=== PATIENT | female | born 1945 | race Caucasian/White ===

== ENCOUNTER 2018-03-16 10:22 | Emergency (ER) | payer BC, OTHER ==
[~2018-03-16] VITALS: Ht 160 cm; Wt 82.1 kg
[~2018-03-16 10:22] MED LIST: PRILOSEC40 MG; SYNTHROID75 MCG; VESICARE10 MG
[2018-03-16] MEDS ORDERED: SODIUM CHLORIDE 0.9% 1000ML 1,000 ML IV STA (10:40)
[2018-03-16] MEDS ORDERED: ASPIRIN 81 MG CHEW TAB PO ONE (10:45)
[2018-03-16] MEDS ORDERED: ONDANSETRON HCL INJ 2 MG/ML VIAL IV STA (10:48)
[2018-03-16 11:18] LABS: BASOPHILS % 0.2 % (0.0-1.0); EOSINOPHILS % 0.5 % (0.0-6.0); HEMATOCRIT 37.7 % (34.2-44.1); HEMOGLOBIN 12.2 g/dL (12.0-16.0); LYMPHOCYTES # (AUTO) 1.1 (1.0-3.2); LYMPHOCYTES % 13.4 % (18.0-39.1); MEAN CORPUSCULAR HEMOGLOBIN 28.3 pg (28-32); MEAN CORPUSCULAR HGB CONC 32.4 g/dL (31-35); MEAN CORPUSCULAR VOLUME 87.5 fL (81-99); MONOCYTES # (AUTO) 0.6 (0.2-0.8); MONOCYTES % 7.5 % (4.4-11.3); NEUTROPHILS # (AUTO) 6.4 (2.1-6.9); PLATELET COUNT 290 x10e3/uL (140-360); RED BLOOD COUNT 4.31 x10e6/uL (3.6-5.1); RED CELL DISTRIBUTION WIDTH 14.5 % (11.7-14.4)
[2018-03-16 11:24] LABS: STREPTOCOCCUS GRP A ANTIGEN NEGATIVE (NEGATIVE)
[2018-03-16 11:32] LABS: ALANINE AMINOTRANSFERASE 15 IU/L (0-55); ALBUMIN/GLOBULIN RATIO 0.9 (0.8-2.0); ALKALINE PHOSPHATASE 106 IU/L (40-150); ANION GAP 18.7 mmol/L (8-16); BLOOD UREA NITROGEN 13 mg/dL (7-26); BUN/CREATININE RATIO 15 (6-25); CALCIUM 9.1 mg/dL (8.4-10.2); CARBON DIOXIDE 18 mmol/L (22-29); CHLORIDE 105 mmol/L (98-107); CREATINE KINASE 73 IU/L (29-168); CREATININE, SERUM 0.89 mg/dL (0.57-1.11); EST GLOMERULAR FILTRATION RATE > 60 ML/MIN (60-); GLUCOSE 122 mg/dL (74-118); POTASSIUM 4.7 mmol/L (3.5-5.1); SODIUM 137 mmol/L (136-145)
[2018-03-16 11:34] LABS: INFLUENZAE A&B ANTIGEN (RAPID) NEGATIVE (NEGATIVE)
--- NOTE | 2018-03-16 11:40 | Diagnostic Imaging Report ---
EXAM: XR CHEST 2 VIEWS DATE: 03/16/2018 10:40 AM INDICATION: Cough/congestion COMPARISON: None FINDINGS: Lines and Tubes: None Heart and Mediastinum: The heart is not enlarged. Retrocardiac rounded opacity present. Lungs and Pleura: Minimal biapical scarring. Minimal opacities in the lung bases statistically represent atelectasis, however, infectious process could have a similar appearance. Bones and Soft Tissues: No acute findings. IMPRESSION: 1. Probable basilar atelectasis. 2. Small rounded density retrocardiac region statistically hiatal hernia, but inadequately evaluated radiographically. Signed by: Dr. Sammy Wiggins MD on 03/16/2018 11:36 AM
[2018-03-16] MEDS ORDERED: DEXAMETHASONE SOD PHOS 10 MG/1 ML VIAL ONE (12:20)
[2018-03-16] MEDS ORDERED: DEXAMETHASONE SOD PHOS 10 MG/1 ML VIAL INJ ONE (13:00)
--- OUTSIDE RECORDS SUMMARY | 2018-03-18 13:57 | XMS REPORT | Encounter Summary ---
Author Organization Unknown Address [address] [place] [address] Phone [phone] Reason for Visit Medical Complaint Instructions 1. Acute upper respiratory infection upper respiratory infection (cold): care instructions fluticasone 50 mcg/actuation nasal spray,suspension 2. Acute pharyngitis sore throat: care instructions rapid strep group A, throat Discussion Note Pt is in NAD; Verbalizes understanding of all instructions with no questions at this time. Plan of Care Patient Instructions Take fluticasone over the counter as needed for congestion. [place] one spray in each nostril twice a day. Take a warm, steamy shower, blow your nose thereafter, and spray in each nostril. Tilt your head up for about 10 seconds and breath through your mouth. Do not sniff or snort the medication in or else the medication will go to your throat and not be absorbed appropriately. Take over the counter antihistamine like claritin or Xyzal for allergy like symptoms like runny nose, sneezing and watery eyes. Take chloraseptic spray for sore throat as per package insert. Continue Cheratussin AC for cough as directed. Take medications as prescribed and follow up with a PCP within 2-3 if symptoms worsen as discussed. Reminders Provider Appointments None recorded. Lab Rapid Strep Group a, Throat 10/10/2016 [facility] Referral None recorded. Procedures None recorded. Surgeries None recorded. Imaging None recorded. Medications Name Start Date Cheratussin AC citalopram 40 mg tablet TAKE ONE (1) TABLET(S) BY MOUTH ONCE A DAY. fluticasone 50 mcg/actuation nasal spray,suspension [place] 1 spray every day by intranasal route as needed for 10 days. levothyroxine 88 mcg tablet TAKE ONE (1) TABLET(S) BY MOUTH ONCE A DAY ON AN EMPTY STOMACH. Medications Administered None recorded. Vitals Height Weight BMI Blood Pressure 5 ft 4 in 190 lbs 32.6 114/80 Lab Results Date Name Specimen Result Interpretation Description Value Range Status Address Rapid Strep Group a, Throat Result negative [facility]: [address] [place], [place] Swab Location Left and Right tonsillar pillars [facility]: [address] [place] [address] Allergies Code Code System Name Reaction Severity Onset Penicillins Anaphylaxis Mild to Moderate Problems Name Status Onset Date Source Conjunctivitis Active Encounter Acute Sinusitis Active Encounter Allergic Rhinitis Active Encounter Procedures Date Name Performed by Information not available Tonsillectomy Information not available Vaccine List None recorded. Social History Smoking Status Never Smoker Past Encounters 10/10/2016 Acute Upper Respiratory Infection; Acute Pharyngitis Amara Prado, RESOURCE RECOVERY ENGINEER-C: [address] [place] [address], Ph. History of Present Illness [id number] Reported By: Patient HPI: Duration: days. Context: no ill contacts, no tick/insect bites, no recent travel, no new medications; Pt reports she has cheratussin AC at home but has not been taking it. Associated Symptoms: no headache, no muscle aches, no rash, no lethargy, fever/chills, cough; sore throat. Modifying Factors OTC medication Review of Systems:ROS as noted in the HPI Review of Systems Basic Reported By: Patient Physical Exam Adult Basic, Adult Female Complete Reported By: Patient Constitutional: General Appearance: healthy-appearing, well-nourished, well-developed. Level of Distress: NAD. Ambulation: ambulating normally Psychiatric: Mental Status: active and alert. Orientation: to time, to place, to person Eyes: Lids and Conjunctivae: non-injected Ehc-Kwzn-Tsffj-Throat: Ears: no lesions on external ear, no outer ear tenderness, EACs clear, TMs clear. Nose: no lesions on external nose, nares patent, no septal deviation, nasal passages clear, no sinus tenderness, nasal d ischarge--rhinorrhea, post nasal drip. Lips, Teeth, and Gums: no mouth or lip ulcers, no bleeding gums, normal dentition. Oropharynx: moist mucous membranes, no erythema, no exudates, tonsils absent Neck: Neck: supple. Lymph Nodes: anterior cervical LAD Lungs: Respiratory effort: no dyspnea, no tachypnea, no use of accessory muscles, no intercostal retractions. Auscultation: breath sounds normal Cardiovascular: Heart Auscultation: RRR, no murmurs Neurologic: Gait and Station: normal gait, normal station
--- OUTSIDE RECORDS SUMMARY | 2018-03-18 13:57 | XMS REPORT | Continuity of Care Document ---
Author Author [facility] Address Unknown Phone Unavailable Problems Problem Status Onset Date Classification Date Reported Comments Source Feeling faint 03/16/2018 Diagnosis 03/16/2018 [facility] Dyspnea at rest 03/16/2018 Diagnosis 03/16/2018 [facility] Hypoxia 03/16/2018 Diagnosis 03/16/2018 [facility] Influenza-like symptoms 03/16/2018 Diagnosis 03/16/2018 [facility] Body mass index 30+ - obesity 03/16/2018 Diagnosis 03/16/2018 [facility] Bacterial conjunctivitis 01/11/2018 Diagnosis 01/11/2018 [facility] Hypothyroidism 01/11/2018 Problem 03/16/2018 [facility] Body Mass Index 30+ - Obesity 01/11/2018 Problem 03/16/2018 [facility] Bacterial Conjunctivitis 01/11/2018 Problem 01/11/2018 [facility] Acute upper respiratory infection 10/10/2016 Diagnosis 10/10/2016 [facility] Acute pharyngitis 10/10/2016 Diagnosis 10/10/2016 [facility] Conjunctivitis Problem 10/10/2016 [facility] Acute Sinusitis Problem 10/10/2016 [facility] Allergic Rhinitis Problem 10/10/2016 [facility] Medications Medication Details Route Status Patient Instructions Ordering Provider Order Date Source Citalopram 40 MG Oral Tablet citalopram 40 mg tablet TAKE ONE (1) TABLET(S) BY MOUTH ONCE A DAY. Active [facility] Levothyroxine Sodium 0.088 MG Oral Tablet levothyroxine 88 mcg tablet TAKE ONE (1) TABLET(S) BY MOUTH ONCE A DAY ON AN EMPTY STOMACH. Active [facility] Polymyxin B 76931 UNT/ML / Trimethoprim 1 MG/ML Ophthalmic Solution polymyxin B sulfate 10,000 unit-trimethoprim 1 mg/mL eye drops Instill 1 drop every 4 hours by ophthalmic route as directed to left eye for 7 days. Active [facility] Cheratussin AC Cheratussin AC Active [facility] Fluticasone propionate 0.05 MG/ACTUAT Metered Dose Nasal [place] fluticasone 50 mcg/actuation nasal spray,suspension [place] 1 spray every day by intranasal route as needed for 10 days. Active [facility] Nexium Nexium Active [facility] Allergies, Adverse Reactions, Alerts Substance Category Reaction Severity Reaction type Status Date Reported Comments Source Penicillins Anaphylaxis Mild to Moderate Allergy to substance 09/14/2014 [facility] Immunizations Immunization Date Given Site Status Last Updated Comments Source Results Order Name Results Value Reference Range Date Interpretation Comments Source Influenza A negative 03/16/2018 [facility] Influenza B negative 03/16/2018 [facility] Adenovirus Ag [Presence] in Unspecified specimen by Immunoassay RESULT negative 01/11/2018 [facility] Adenovirus Ag [Presence] in Unspecified specimen by Immunoassay SWAB LOCATION Left Conjunctiva 01/11/2018 [facility] RESULT negative 10/10/2016 [facility] SWAB LOCATION Left and Right tonsillar pillars 10/10/2016 [facility] Vital Signs Vital Sign Value Date Comments Source Diastolic (mm Hg) 80 03/16/2018 [facility] Height 64 03/16/2018 [facility] Systolic (mm Hg) 106 03/16/2018 [facility] Weight 185 03/16/2018 [facility] Diastolic (mm Hg) 76 01/11/2018 [facility] Height 64 01/11/2018 [facility] Systolic (mm Hg) 112 01/11/2018 [facility] Weight 185 01/11/2018 [facility] Diastolic (mm Hg) 80 10/10/2016 [facility] Height 64 10/10/2016 [facility] Systolic (mm Hg) 114 10/10/2016 [facility] Weight 190 10/10/2016 [facility] Encounters Location Location Details Encounter Type Encounter Number Reason For Visit Attending Provider ADM Date DC Date Status Source [place] - [facility] - [id number] Alfaro-C: [address] [facility] [place] [address], Ph. [id number] Amara Prado 10/10/2016 [facility] [place] - [facility] - [id number] Alfaro-C: [address] [place] [address], Ph. [id number] Amara Prado 01/11/2018 [facility] [place] - [facility] - [id number] ReyesC: [address] [facility], [place]vaez [address], Ph. [id number] Debbie Augustin 03/16/2018 [facility] Procedures Procedure Code Date Perfomer Comments Source [facility] Tonsillectomy [facility]
--- OUTSIDE RECORDS SUMMARY | 2018-03-18 13:57 | XMS REPORT | Encounter Summary ---
Author Organization Unknown Address [address] [place] [address] Phone [phone] Reason for Visit Left Medical Complaint Instructions 1. Bacterial conjunctivitis pinkeye: care instructions polymyxin B sulfate 10,000 unit-trimethoprim 1 mg/mL eye drops adenovirus Ag, Immunoassay 2. Body mass index 30+ - obesity body mass index: care instructions Discussion Note Pt is in NAD; Verbalizes understanding of all instructions with no questions at this time. Plan of Care Patient Instructions Proper hand hygiene after contact with eyes, do not share pillows/clothing. Do not not wear any contacts for the next 7 days. Use a different tissue to clean each eye. You will become non-contagious after 28 hrs of proper antibiotic use. Take medications as prescribed. Follow up with your PCP or airport engineer within 2-3 days if symptoms worsen as discussed. Report to ER in case of emergency, sharp e ye pain or vision loss. Recommend follow a low sodium/fat/carb diet and exercise 30-45 mins/d 3-4 days a week once symptoms resolve. Reminders Provider Appointments None recorded. Lab Adenovirus Ag, Immunoassay 01/11/2018 [facility] Referral None recorded. Procedures None recorded. Surgeries None recorded. Imaging None recorded. Medications Name Start Date citalopram 40 mg tablet TAKE ONE (1) TABLET(S) BY MOUTH ONCE A DAY. levothyroxine 88 mcg tablet TAKE ONE (1) TABLET(S) BY MOUTH ONCE A DAY ON AN EMPTY STOMACH. polymyxin B sulfate 10,000 unit-trimethoprim 1 mg/mL eye drops Instill 1 drop every 4 hours by ophthalmic route as directed to left eye for 7 days. Medications Administered None recorded. Vitals Height Weight BMI Blood Pressure 5 ft 4 in 185 lbs 31.8 kg/m2 112/76 mm[Hg] Lab Results Date Name Specimen Result Interpretation Description Value Range Status Address 01/11/2018 Adenovirus Ag, Immunoassay Result negative [facility]: [address] [place] [address] Swab Location Left Conjunctiva [facility]: [address] [place] [address] Allergies Code Code System Name Reaction Severity Status Onset Penicillins Anaphylaxis Mild to Moderate Active Problems Name Status Onset Date Source Hypothyroidism Active 01/11/2018 Body Mass Index 30+ - Obesity Active 01/11/2018 Bacterial Conjunctivitis Active 01/11/2018 Procedures Date Name Performed by Information not available Tonsillectomy Information not available Vaccine List None recorded. Social History Smoking Status Never Smoker Past Encounters 01/11/2018 Bacterial Conjunctivitis; Body Mass Index 30+ - Obesity Amara Prado, [facility]-C: [address] [place] [address], Ph. History of Present Illness Eye Complaint Reported By: Patient HPI: Location: left. Quality: dull. Severity: pain level 2/10. Duration actual date 01-10-18, constant. Onset/Timing: first episode, gradual onset, 1days. Context no previous history of Iritis, no previous history of recurrent corneal erosion, no one else with similar symptoms, wears contact lenses. Modifying factors nothing gives relief. Associated Symptoms: vision intact, no foreign body sensation in eyes, no pain in the eyes, no pain with eye movement, no headache, no fever/chills, no muscle aches, photophobia, matting/drainage; eye irritation and mucopurulent drainage Review of Systems Basic Reported By: Patient Constitutional: Constitutional: no fever Eyes: Eyes: dry eyes, irritation; mucopurulent drainage and photophobia [id number]-Hcdg-Cozzn-Throat: Ears: no ear complaints. Nose: no nose/sinus problems. Mouth/Throat: no sore throat, no bleeding gums, no mouth complaints, no teeth problems Cardiovascular: Cardiovascular: no chest pain, no shortness of breath, no known heart murmur Respiratory: Respiratory: no cough, no wheezing, no shortness of breath Gastrointestinal: Gastrointestinal: no abdominal pain, no vomiting / diarrhea Genitourinary: Genitourinary: no urinary complaints, no discharge Musculoskeletal: Musculoskeletal: no muscle aches, no muscle weakness, no arthralgias/joint pain, no back pain Skin: Skin: no abnormal / changing mole, no jaundice, no rashes Neurologic: Neurologic: no loss of consciousness, no weakness, no numbness, no seizures, no dizziness, no headaches Physical Exam Adult Basic, Adult Female Complete Reported By: Patient Constitutional: General Appearance: obese. Level of Distress: NAD. Ambulation: ambulating normally Psychiatric: Mental Status: active and alert. Orientation: to time, to place, to person Eyes: Lids and Conjunctivae: injected, discharge. Pupils: PERRLA. Corneas: grossly intact. EOM: EOMI. Lens: clear. Sclerae: non-icteric. Vision: distance acuity: left, with correction: 20/20, distance acuity: right, with correction: 20/20 Nzb-Mpkr-Sessa-Throat: Ears: no lesions on external ear, no outer ear tenderness, EACs clear, TMs clear. Nose: no lesions on external nose, nares patent, no septal deviation, nasal passages clear, no sinus tenderness, no nasal discharge. Lips, Teeth, and Gums: no mouth or lip ulcers, no bleeding gums, normal dentition. Oropharynx: moist mucous membranes, no erythema, no exudates, tonsils absent Neck: Lymph Nodes: no cervical LAD Lungs: Respiratory effort: no dyspnea, no tachypnea, no use of accessory muscles, no intercostal retractions Cardiovascular: Heart Auscultation: RRR, no murmurs Skin: Inspection and palpation: no rash
== END 2018-03-16 12:34 | disposition home or self-care (01) ==
LOC: ER 10:22
DX: R50.9 Fever, unspecified (principal); R05 Cough; J02.9 Acute pharyngitis, unspecified; J01.00 Acute maxillary sinusitis, unspecified; J01.20 Acute ethmoidal sinusitis, unspecified
CPT/HCPCS: 36415; 71046; 80053; 82550; 82553; 83518; 84484; 85025; 87070; 87400; 93005; 99283; J1100; J2405; J7030; 81001; 87086